=== PATIENT | male | born 1955 | race Asian ===

== ENCOUNTER 2020-06-05 09:41 | Emergency (ER) | payer SELFPAY ==
[2020-06-05] MEDS ORDERED: MIDAZOLAM DRIP 50 mg/50mL 50 ML IV SCH (10:20)
[2020-06-05] MEDS ORDERED: MIDAZOLAM HCL 5 MG/ML-1ML VIAL IV ONE (10:30)
[2020-06-05 10:32] LABS: Basophils # (auto) 0.1 10 ^3/uL (0-0.2); Basophils % (auto) 0.2 % (0.0-2.0); Eosinophils # (auto) 0 10 ^3/uL (0-0.8); Hemoglobin 16.5 g/dL (13.5-17.5); Lymphocytes # (auto) 1.2 10 ^3/uL (0.4-5.4); Lymphocytes % (auto) 5.2 % (10.0-50.0); Mean Corpuscular Hemoglobin 29.5 pg (28.0-32.0); Mean Corpuscular Hgb Conc. 32.2 g/dL (32.0-36.0); Mean Corpuscular Volume 91.6 fL (80.0-100.0); Monocytes % (auto) 4.3 % (0.0-12.0); Neutrophils # (auto) 20.4 10 ^3/uL (1.6-8.6); Neutrophils % (auto) 90.3 % (37.0-80.0); Nucleated Red Blood Cells % 0.1 %; Platelet Count (auto) 274 10^3/uL (140-450); Red Blood Cells 5.57 10^6/uL (4.5-5.90); Red Cell Distribution Width 14.3 % (11.8-14.3); White Blood Cell 22.7 10^3/uL (4.4-10.8)
[2020-06-05 10:55] LABS: INR 1.05 (0.9-1.15); Partial Thromboplastin Time 27.3 sec (23.64-32.05)
[2020-06-05 10:59] LABS: Albumin 4.4 g/dL (3.4-5.0); Anion Gap 11 (5-15); BUN/Creatinine Ratio 9.9; Blood Urea Nitrogen 14 mg/dL (7-18); Calcium 8.8 mg/dL (8.5-10.1); Carbon Dioxide 25 mmol/L (21-32); Chloride 103 mmol/L (98-107); GFR African American 65 mL/min; GFR Non-African American 54 mL/min; Glucose 285 mg/dL (74-106); Sodium 139 mmol/L (136-145)
[2020-06-05] MEDS ORDERED: FUROSEMIDE 20 MG/2 ML VIAL IV ONE (11:00)
[2020-06-05] MEDS ORDERED: PIPERACILLIN-TAZOB 3.375GM 100 ML IV ONE (11:00)
[2020-06-05] MEDS ORDERED: PANTOPRAZOLE 40mg/50ML NS AE 50 ML IV ONE (11:00)
[2020-06-05 11:02] LABS: Urine Bacteria NONE SEEN /hpf (None Seen); Urine Blood 3+ /uL (Negative); Urine Hyaline Cast FEW /lpf (0 - 2); Urine Specific Gravity 1.011 (1.001-1.035); Urine WBC 3 /hpf (0 - 3)
[2020-06-05 11:04] LABS: Alanine Aminotransferase 48 U/L (16-61); Alkaline Phosphatase 88 U/L (45-117); Aspartate Aminotransferase 66 U/L (15-37); Bilirubin, Total 0.5 mg/dL (0.2-1.0); Total Protein 9.3 g/dL (6.4-8.2)
[2020-06-05 11:07] LABS: CRP High Sensitivity 0.62 mg/dL (< 0.3)
[2020-06-05 11:14] LABS: Lactic Acid w/Reflex 7.8 mmol/L (0.4-2.0)
[2020-06-05 11:16] LABS: Alcohol, Urine < 3.0 mg/dL (0-10); Amphetamine Screen, Urine NEGATIVE (NEGATIVE); Barbiturate Scree,Urine NEGATIVE (NEGATIVE); Benzodiazephine Screen, Urine NEGATIVE (NEGATIVE); Cannabinoid Screen, Urine NEGATIVE (NEGATIVE); Cocaine Screen, Urine NEGATIVE (NEGATIVE); Opiate Scree,Urine NEGATIVE (NEGATIVE); Phencyclidine Screen, Urine NEGATIVE (NEGATIVE)
[2020-06-05 11:23] LABS: Potassium 2.9 mmol/L (3.5-5.1)
[2020-06-05] MEDS ORDERED: SODIUM CHLORIDE 0.9% 1,000 ML IV ONE ×2 (11:45→12:15)
[2020-06-05] MEDS ORDERED: IOHEXOL 350 MG/ML 100ML IJ ONE (12:24)
[2020-06-05] MEDS: POTASSIUM CHL 20MEQ/100ML 100 ML IV SCH ×2 (14:03→14:15)
[2020-06-05 14:25] VITALS: BP 123/87
== END 2020-06-05 14:56 | disposition short-term general hospital (02) ==
LOC: EDAGE 09:41 → EDBD 09:41 → ER 09:41
DX: A41.9 Sepsis, unspecified organism (principal); G93.41 Metabolic encephalopathy; R06.03 Acute respiratory distress; E87.6 Hypokalemia; E11.9 Type 2 diabetes mellitus without complications; I10 Essential (primary) hypertension; Z20.828 Contact with and (suspected) exposure to other viral communicable diseases
CPT/HCPCS: 31500; 36415; 36556; 36600; 70450; 71045; 71275; 80053; 80307; 80320; 81001; 82728; 82805; 83605; 83615; 84484; 85025; 85379; 85610; 85730; 86141; 87040; 87070; 87077; 87186; 87205; 87804; 87880; 96365; 96366; 96368; 96375; 99291; C9803; J1940; J1953; J2250; J2543; J3480; J7060; Q9967; U0003; 94002